=== PATIENT | female | born 1985 | race Caucasian/White ===

== ENCOUNTER 2018-05-05 07:59 | Emergency (ER) | payer MEDICARE, SELFPAY ==
[2018-05-05 08:00] VITALS: BP 98/55; PULSE 79; RESP 18; TEMP 37.2; O2SAT 98; BMI 25.4
--- NOTE | 2018-05-05 08:27 | ED.DCSUM_ITS ---
- ER Visit Summary Date of Service: 05/05/18 Chief Complaint: Right foot pain History of Present Illness: The patient is a 32 F who has right foot pain. She states it started 4 days ago. She noticed a wound on the top of the foot at the base of the fourth toe. She went to urgent care yesterday and the put her on Augmentin. Her pain is increased today. She has not had fever. No drainage. Hurts to walk on it. She has been using Tylenol to help with the pain. She states that she has a surgery scheduled for Friday for a mesh removal wanted to make sure that the antibiotics would not interfere with that. Physical Examination: Vital signs are reviewed. Right foot exam reveals a small wound at the base of the fourth toe with mild surrounding erythema. There is no abscess. It is tender to palpation. Test Results: None performed Emergency Department Course and Treatment: Patient will be given different antibiotics. I will switch her to Bactrim. I will also give her Bactroban to put on this area. She will follow-up with her PCP Treatment Plan: [] Disposition: Discharge Impression: Right foot cellulitis This note was generated with [employer] dictation software. It may contain incorrect words, spelling, and punctuation that were not noted in review of the chart prior to signing ED Disposition - Plan for ED Patient: Chief Complaint: Cellulitis Referrals: Aubrey Hernandez MD [Primary Care Provider] -
--- NOTE | 2018-05-05 08:27 | ED.DEP ---
ED Disposition - Plan for ED Patient: Disposition: Home or Assisted Living Chief Complaint: Cellulitis Instructions: Discharge Instructions for Cellulitis Prescriptions: Smz/Tmp Ds [Bactrim Ds] 1 tab PO BID #14 tab Mupirocin Calcium [Bactroban] 30 gm TP 4X/DAY #1 tube Referrals: Aubrey Hernandez MD [Primary Care Provider] -
== END 2018-05-05 08:44 | disposition home or self-care (01) ==
PROVIDERS: Emergency Provider Emergency Medicine; Family Provider Family Medicine; PCP Family Medicine
DX: L03.115 Cellulitis of right lower limb (principal); B96.89 Other specified bacterial agents as the cause of diseases classified elsewhere; M79.7 Fibromyalgia; Z72.0 Tobacco use
CPT/HCPCS: 99282

== ENCOUNTER 2018-05-06 21:58 | Emergency (ER) | payer MEDICARE, SELFPAY ==
[2018-05-06 21:59] VITALS: BP 116/57; PULSE 79; RESP 15; TEMP 36.6; O2SAT 98; BMI 25.4
--- NOTE | 2018-05-06 23:20 | ED.VISSUMM ---
- ER Visit Summary Date of Service: 05/06/18 Chief Complaint: Right fourth toe pain, swelling and purulent discharge History of Present Illness: The patient is a 32 F states last Eugenio she felt pain in her fourth right toe. The next day she noticed swelling. Initially she thought she may have had some type of insect sting and allergic reaction. However the swelling became worse with redness. She was treated in urgent care earlier this week and started on Augmentin twice daily. She then came in the ER and was switched to Bactrim and Bactroban cream. She states was elevated feels better when she is up and walking or when the foot is hanging down it feels worse. She denies any fever or chills. She does have a history of fibromyalgia and chronic pain. She denies any prior foot surgeries. Physical Examination: Well-appearing female vital signs are stable and afebrile. She is in no acute distress. H EENT exam unremarkable. Neck nontender. Lungs clear to auscultation bilaterally. Heart regular rhythm no murmur. Abdomen soft nontender. She is moving all 4 extremities. Neurovascularly intact. Top of her right foot the base of her fourth toe on the anterior aspect there is a small abscess. There is some small purulent discharge. Otherwise the foot is neurovascularly intact. With strong DP pulse. Cap refill normal touch sensation. No gross bony deformities. No lymphangitic streaking. No involvement of the ankle or any signs of septic joint. No crepitance or subcu air. No necrotic tissue. Test Results: None Emergency Department Course and Treatment: Discussed with the patient. I feel she needs a formal incision and drainage. Let will be applied to the wound. Then local anesthetic with lidocaine. Treatment Plan: Continue warm soaks. Continue elevation. Continue antibiotic therapy with both the Augmentin and Bactrim. Follow-up with her primary care physician Dr. Mattson. Return if worse. Disposition: Discharge Impression: Acute right foot pain and swelling secondary to subcu abscess at the base of the fourth toe. Incision and drainage by the ER This note was generated with [employer] dictation software. It may contain incorrect words, spelling, and punctuation that were not noted in review of the chart prior to signing ED Disposition - Plan for ED Patient: Chief Complaint: Wound Check Referrals: Aubrey Hernandez MD [Primary Care Provider] -
--- NOTE | 2018-05-06 23:23 | ED.DEP ---
ED Disposition - Plan for ED Patient: Disposition: Home or Assisted Living Chief Complaint: Wound Check Instructions: ED Abscess IandD Referrals: Aubrey Hernandez MD [Primary Care Provider] - 3-5 Days Additional Instructions: Continue to elevate the foot to decrease pain and swelling. Motrin and Tylenol for pain. Warm soaks to help the pus continue to drain out. I would encourage you to use both the Augmentin and Bactrim which should definitely cover any potential infections in this wound.
[2018-05-07] MEDS: Lidocaine/Epi/Tetracaine 50 ML 1 APPLIC TOPICAL (00:09)
== END 2018-05-07 00:25 | disposition home or self-care (01) ==
PROVIDERS: Emergency Provider Emergency Medicine; Family Provider Family Medicine; PCP Family Medicine
DX: L02.611 Cutaneous abscess of right foot (principal); B96.89 Other specified bacterial agents as the cause of diseases classified elsewhere; M79.7 Fibromyalgia; M19.90 Unspecified osteoarthritis, unspecified site; G89.29 Other chronic pain; Z79.891 Long term (current) use of opiate analgesic; Z79.899 Other long term (current) drug therapy; Z72.0 Tobacco use
CPT/HCPCS: 10060; 99284

== ENCOUNTER 2018-05-09 08:30 | Emergency (ER) | payer MEDICARE, SELFPAY ==
[2018-05-09 08:31] VITALS: BP 105/68; PULSE 72; RESP 24; TEMP 36.7; O2SAT 99; BMI 25.4
--- NOTE | 2018-05-09 08:46 | ED.VISSUMM ---
- ER Visit Summary Date of Service: 05/09/18 Chief Complaint: [] Anterior abdominal wall pain right flank pain status post removal of anterior abdominal wall mesh at [facility] yesterday by Dr. Arshad History of Present Illness: The patient is a 32 F [] she reports history of chronic low back pain fibromyalgia abdominal pain related to anterior abdominal wall mesh, she indicates she did abdominal hernia she had a mesh placed the mesh then she states curled up around her umbilicus, causing severe abdominal pain she had abdominal surgery yesterday to remove the mesh at [facility] as above she indicates she had pain before the surgery, she had immediate postop pain, she explains the physicians at [facility] she was having immediate postop pain she was given Canjilon and sent home despite the fact that her pain was still persistent, she indicates she continue to take the Canjilon at home with no improvement the pain intensified, the Canjilon was not helping she also began having low lumbar back pain she reports she called [facility] spoke with the physician director content marketing for her physician was instructed to come to the hospital Had no fever she has had a slight cough since the surgery the abdominal pain is related to the surgical incision and she points directly to her umbilicus she has chronic lumbar back pain she points to her right flank is area of pain she is resting comforting the bed when she moves she has more pain in her umbilicus Physical Examination: [] Vital signs are within normal range her pulse ox is 97 she is afebrile she is complaining bitterly of anterior abdominal wall pain her head exams unremarkable her lungs are clear the heart tones are normal the abdomen there is a midline incision in place that is centered around the umbilicus, seems to be some of the tissue has been pulled together here. There is no drainage or warmth or abscess or signs of fluid collection, there is a moderate amount of pain around this incision. The rest the abdominal wall is unremarkable, the rest the abdomen is unremarkable, her midline back is unremarkable which she has some pain to the right flank her lower extremities unremarkable she has a dressing over toe lesion to the right she is awake alert moving all 4 Test Results: [] Emergency Department Course and Treatment: [] This time screening labs are obtained IV fluids morphine and we will speak with the [facility] physicians who took care of her yesterday, I spoke with these physicians director content marketing they agree with workup they agree no imaging is necessary and they are happy to have her transfer to [facility] should the patient wish to be transferred to her pain be intractable Treatment Plan: [] The patient's test results x-rays are generally unremarkable see those reports on reevaluation she is resting comfortably in the bed she has no complaints she is feeling much better she has no cough she is able take a full breath move her body around the room without complaining of pain I explained to the patient we could arrange for admission as above to the back to the [facility] or she could be admitted here for further management she does not wish to be admitted she is feeling better she wants to go home and she does agree to continue her outpatient management plan follow-up with her physicians, she is concerned that she has not had a bowel movement yet but she is passing gas and she will be started on MiraLAX as constipation could certainly contribute to her constellation of symptoms, she will be switched to Percocet No. 10 tablets Disposition: [] Home stable and improved declined admission Impression: [] Abdominal pain, postop removal of abdominal wall mesh, improved This note was generated with [employer] dictation software. It may contain incorrect words, spelling, and punctuation that were not noted in review of the chart prior to signing ED Disposition - Plan for ED Patient: Chief Complaint: Abd Pain Referrals: Aubrey Hernandez MD [Primary Care Provider] -
--- NOTE | 2018-05-09 08:49 | ED.DCSUM_ITS ---
- ER Visit Summary Date of Service: 05/09/18 Chief Complaint: [] Anterior abdominal wall pain right flank pain status post removal of anterior abdominal wall mesh at [facility] yesterday by Dr. Arshad History of Present Illness: The patient is a 32 F [] she reports history of chronic low back pain fibromyalgia abdominal pain related to anterior abdominal wall mesh, she indicates she did abdominal hernia she had a mesh placed the mesh then she states curled up around her umbilicus, causing severe abdominal pain she had abdominal surgery yesterday to remove the mesh at [facility] as above she indicates she had pain before the surgery, she had immediate postop pain, she explains the physicians at [facility] she was having immediate postop pain she was given [place] and sent home despite the fact that her pain was still persistent, she indicates she continue to take the [place] at home with no improvement the pain intensified, the [place] was not helping she also began having low lumbar back pain she reports she called [facility] spoke with the physician release of information specialist for her physician was instructed to come to the hospital Had no fever she has had a slight cough since the surgery the abdominal pain is related to the surgical incision and she points directly to her umbilicus she has chronic lumbar back pain she points to her right flank is area of pain she is resting comforting the bed when she moves she has more pain in her umbilicus Physical Examination: [] Vital signs are within normal range her pulse ox is 97 she is afebrile she is complaining bitterly of anterior abdominal wall pain her head exams unremarkable her lungs are clear the heart tones are normal the abdomen there is a midline incision in place that is centered around the umbilicus, seems to be some of the tissue has been pulled together here. There is no drainage or warmth or abscess or signs of fluid collection, there is a moderate amount of pain around this incision. The rest the abdominal wall is unremarkable, the rest the abdomen is unremarkable, her midline back is unremarkable which she has some pain to the right flank her lower extremities unremarkable she has a dressing over toe lesion to the right she is awake alert moving all 4 Test Results: [] Emergency Department Course and Treatment: [] This time screening labs are obtained IV fluids morphine and we will speak with the [facility] physicians who took care of her yesterday, I spoke with these physicians release of information specialist they agree with workup they agree no imaging is necessary and they are happy to have her transfer to [facility] should the patient wish to be transferred to her pain be intractable Treatment Plan: [] The patient's test results x-rays are generally unremarkable see those reports on reevaluation she is resting comfortably in the bed she has no complaints she is feeling much better she has no cough she is able take a full breath move her body around the room without complaining of pain I explained to the patient we could arrange for admission as above to the back to the [facility] or she could be admitted here for further management she does not wish to be admitted she is feeling better she wants to go home and she does agree to continue her outpatient management plan follow-up with her physicians, she is concerned that she has not had a bowel movement yet but she is passing gas and she will be started on MiraLAX as constipation could certainly contribute to her constellation of symptoms, she will be switched to Percocet No. 10 tablets Disposition: [] Home stable and improved declined admission Impression: [] Abdominal pain, postop removal of abdominal wall mesh, improved This note was generated with [employer] dictation software. It may contain incorrect words, spelling, and punctuation that were not noted in review of the chart prior to signing ED Disposition - Plan for ED Patient: Chief Complaint: Abd Pain Referrals: Aubrey Hernandez MD [Primary Care Provider] -
[2018-05-09] MEDS: Ondansetron 4 MG/2 ML Vial IV (08:51)
[2018-05-09] MEDS: 0.9% Normal Saline 1,000 ML 1000 ML IV (08:51)
[2018-05-09] MEDS: morphine 8 MG/ML Syringe IV (08:53)
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
[2018-05-09 09:10] LABS: Absolute Lymphocyte Count 2.87 X10^3/ul (0.83-4.51); Absolute Neutrophil Count 5.4 X10^3/uL (2.0-7.7); Basophil# 0.02 X10^3/uL; Basophil% 0.2 % (0-1); Eosinophil# 0.13 X10^3/uL; Eosinophils% 1.4 % (0-5); Hematocrit 35.4 % (37-47); Hemoglobin 12.1 g/dl (12.0-15.0); Lymphocyte # 2.87 X10^3/ul (4.0); Lymphocyte % 31.9 % (19-41); Mean Corp Hgb Conc 34.2 g/gl (32-36); Mean Corpuscular Hgb 31.9 pg (27.0-32.0); Mean Corpuscular Volume 93.4 fL (81-99); Mean Platelet Vol. 10.5 fl (6.2-12.0); Monocyte# 0.61 X10^3/uL; Monocyte% 6.8 % (0-10); Neutrophil # 5.35 X10^3/uL (2.7-7.7); Neutrophil % 59.5 % (47-70); POSITIVE COUNT NO; POSITIVE DIFFERENTIAL NO; POSITIVE MORPHOLOGY NO; Platelet Count 222 K/mm3 (150-450); RBC Distribution Width CV 13.2 % (11.6-14.6); RBC Distribution Width SD 43.5 fl (35.1-43.9); Red Blood Count 3.79 M/mm3 (4.2-5.4)
[2018-05-09 09:23] LABS: Bacteria 0 SEEN /hpf (None Seen); Mucous, Urine 0 SEEN /hpf (<or=2+); Red Blood Cells-Urine 0 SEEN /hpf (0-5); White Blood Cells 0 SEEN /hpf (0-5)
[2018-05-09 09:27] LABS: Color, Urine Yellow (Yellow); Glucose, Dipstick Normal (Normal); Ketone-Dipstick Negative (Negative); Leukocyte Esterase-Dipstick Negative /ul (Negative); Nitrite-Dipstick Negative (Negative); Occult Blood-Urine Negative /ul (Negative); Protein-Dipstick Negative (Negative); Urine Bilirubin Dipstick Negative (Negative); Urine Clarity Clear (Clear); Urine Urobilinogen Normal (Normal); Urine pH 6.5 (5.0 - 8.0)
[2018-05-09 09:33] LABS: Squamous Epithelial Cells - UA 0-5 SEEN /hpf (5-10)
[2018-05-09 09:33] LABS: Anion Gap 5 (5-15); BUN 10 mg/dL (7-18); Calcium,Total 8.7 mg/dL (8.5-10.1); Chloride 106 mmol/L (98-107); Creatinine, Serum 0.91 mg/dL (0.55-1.02); EST Glomerular Filtration Rate 75 mL/min (>60); Est Glom Filt Rate - Afr Amer 91 mL/min (>60); Estimated Creatinine Clearance 66.35 ml/min; Glucose 94 mg/dL (74-106); Sodium Level 137 mmol/L (136-145)
--- NOTE | 2018-05-09 10:29 | ED.DEP ---
ED Disposition - Plan for ED Patient: Chief Complaint: Abd Pain Instructions: ED Abdominal Pain Unkn Cause Prescriptions: Oxycodone HCl/Acetaminophen [Percocet 5/325] 1 tab PO Q6H PRN PRN 3 Days #12 tab PRN Reason: Pain Referrals: Aubrey Hernandez MD [Primary Care Provider] -
[2018-05-09 10:38] VITALS: BP 106/57; PULSE 74; RESP 18; O2SAT 99
== END 2018-05-09 11:33 | disposition home or self-care (01) ==
PROVIDERS: Emergency Provider Emergency Medicine; Family Provider Family Medicine; PCP Family Medicine
DX: R10.9 Unspecified abdominal pain (principal); G89.18 Other acute postprocedural pain; M79.7 Fibromyalgia; Z79.899 Other long term (current) drug therapy
CPT/HCPCS: 71045; 80048; 81001; 85025; 96361; 96374; 96375; 99285; J7030; J2405

== ENCOUNTER 2018-05-10 14:01 | Emergency (ER) | payer MEDICARE, SELFPAY ==
[2018-05-10 14:07] VITALS: BP 103/67; PULSE 83; RESP 17; TEMP 36.9; O2SAT 99; BMI 25.4
--- NOTE | 2018-05-10 15:05 | CT_ITS ---
STUDY: CT ABDOMEN AND PELVIS WITH CONTRAST REASON FOR EXAM: Female, 32 years old. Abdominal pain, status post umbilical hernia mesh removal 2 days ago. RADIATION DOSAGE (If Supplied By Facility): CTDIvol = ( 13.17 ) mGy, DLP = ( 470.04 ) mGycm TECHNIQUE: Transaxial images were obtained from the dome of the diaphragm to the symphysis pubis with oral contrast. 100mL ml of Isovue 300 contrast was administered. Sagittal and coronal images were reconstructed. Individualized dose optimization techniques were used for this CT. COMPARISON: Previous study of 05/31/2016 FINDINGS: The visualized lung bases are unremarkable. The visualized portions of the heart are within normal limits. Normal liver. Normal gallbladder and extrahepatic biliary system. Normal spleen. Normal pancreas. There is a minimal pneumoperitoneum. Several tiny gas densities are noted surrounding the IVC, gallbladder, lateral to the right kidney, and anterior to the liver. Normal bilateral adrenal glands. There is a nonobstructing 2 mm calculus of the right kidney. There is a nonobstructing 5 mm calculus of the left kidney. Normal visualized stomach. Normal small intestine. There is a large amount of colonic stool and gas. There is non-visualization of the appendix. Normal abdominal aorta. Normal inferior vena cava. Normal retroperitoneum. Normal urinary bladder. Air is demonstrated in the upper vagina. There is a low-attenuation cervical focus measuring 3.7 x 2.2 cm which is of unknown significance. Post surgical changes of the umbilical region are noted. Several small air densities are present in the region. There is a fluid density subcutaneous focus measuring 2.8 x 1.8 cm. Normal osseous structures. CT/Abdomen/Pelvis WITH Contrast IMPRESSION: 1. There is a minimal pneumoperitoneum. Gas densities are noted surrounding the IVC, gallbladder, lateral to the right kidney, and anterior to the liver. 2. Nonobstructing 2 mm calculus of the right kidney. 3. Nonobstructing 5 mm calculus of the left kidney. 4. There is a large amount of colonic stool and gas. 5. Air is demonstrated in the upper vagina. There is a low-attenuation cervical focus measuring 3.7 x 2.2 cm which is of unknown significance. This is new from the previous study. Endovaginal ultrasonography is recommended for further evaluation of this finding. 6. Postsurgical changes of the umbilical region. There are several small air densities in the subcutaneous fat in the region. This is consistent with history of recent surgery. There is also noted a small subcutaneous fluid collection at the surgical site measuring 2.8 x 1.8 cm. Differential diagnosis would include seroma and abscess. Electronically Signed: Jem Guillermo MD at 18:51 EDT , Service support ,
--- NOTE | 2018-05-10 15:08 | ED.DCSUM_ITS ---
- ER Visit Summary Date of Service: 05/10/18 Chief Complaint: Postop pain History of Present Illness: The patient is a 32 F who underwent abdominal mesh removal on May 08 at [facility] [place]. Patient was seen in the ER yesterday for abdominal pain. Labs were unremarkable. She states her pain is not controlled with Percocet at home. She has not had fever or chills. Physical Examination: Vital signs unremarkable. Patient is afebrile. Head neck examination is unremarkable. Heart is regular rate and rhythm. Lung sounds are clear. Abdomen is soft with periumbilical tenderness. Surgical site is clean. Hypoactive bowel sounds are noted throughout. Test Results: CBC and chemistry studies are unremarkable. CT the abdomen pelvis with p.o. and IV contrast is obtained. There is minimal pneumoperitoneum. Renal stones noted. There is a large amount of colonic stool and gas. There is air in the upper vagina. There is a small subcutaneous fluid collection at the surgical site measuring 2.8 x 1.8 cm. This could be seroma versus abscess. Emergency Department Course and Treatment: Patient did receive a couple doses of morphine and Zofran here. Pain will be well controlled after a shot but then would worsen when she would get up to go to the bathroom. Patient did start taking MiraLAX yesterday and I recommended taking it 2 or 3 times a day while she is on narcotics. I will write her correct dosing instructions for her narcotics that she really has at home. Patient does not have a white count or fever and I believe the fluid collection noted at the surgical site is most likely a seroma. Treatment Plan: [] Disposition: Discharge Impression: Postop abdominal pain This note was generated with [employer] dictation software. It may contain incorrect words, spelling, and punctuation that were not noted in review of the chart prior to signing ED Disposition - Plan for ED Patient: Chief Complaint: Abd Pain Referrals: Aubrey Hernandez MD [Primary Care Provider] -
[2018-05-10] MEDS: Morphine 4 MG/ML Syringe IV ×3 (15:38→19:38)
[2018-05-10] MEDS: 0.9% Normal Saline 1,000 ML 150 ML IV (15:38)
[2018-05-10] MEDS: Ondansetron 4 MG/2 ML Vial IV ×3 (15:38→19:39)
[2018-05-10 15:43] LABS: Absolute Lymphocyte Count 1.56 X10^3/ul (0.83-4.51); Absolute Neutrophil Count 3.5 X10^3/uL (2.0-7.7); Basophil# 0.02 X10^3/uL; Basophil% 0.3 % (0-1); Eosinophil# 0.13 X10^3/uL; Eosinophils% 2.3 % (0-5); Hematocrit 36.7 % (37-47); Hemoglobin 12.3 g/dl (12.0-15.0); Lymphocyte # 1.56 X10^3/ul (4.0); Lymphocyte % 27.3 % (19-41); Mean Corp Hgb Conc 33.5 g/gl (32-36); Mean Corpuscular Hgb 31.1 pg (27.0-32.0); Mean Corpuscular Volume 92.9 fL (81-99); Mean Platelet Vol. 10.1 fl (6.2-12.0); Monocyte# 0.49 X10^3/uL; Monocyte% 8.6 % (0-10); Neutrophil # 3.51 X10^3/uL (2.7-7.7); Neutrophil % 61.3 % (47-70); Platelet Count 214 K/mm3 (150-450); RBC Distribution Width CV 13.5 % (11.6-14.6); RBC Distribution Width SD 46.1 fl (35.1-43.9); Red Blood Count 3.95 M/mm3 (4.2-5.4); White Blood Count 5.7 K/mm3 (4.4-11.0)
[2018-05-10 15:45] LABS: POSITIVE COUNT NO; POSITIVE DIFFERENTIAL NO; POSITIVE MORPHOLOGY NO
[2018-05-10 15:59] LABS: Anion Gap 7 (5-15); BUN 6 mg/dL (7-18); Calcium,Total 8.9 mg/dL (8.5-10.1); Chloride 106 mmol/L (98-107); Creatinine, Serum 0.67 mg/dL (0.55-1.02); EST Glomerular Filtration Rate 107 mL/min (>60); Est Glom Filt Rate - Afr Amer 130 mL/min (>60); Estimated Creatinine Clearance 90.12 ml/min; Glucose 89 mg/dL (74-106); Potassium 4.3 mmol/L (3.5-5.1); Sodium Level 136 mmol/L (136-145)
[2018-05-10 18:31] VITALS: BP 105/71; PULSE 78; RESP 20; O2SAT 98
--- NOTE | 2018-05-10 19:23 | ED.DEP ---
ED Disposition - Plan for ED Patient: Disposition: Home or Assisted Living Chief Complaint: Abd Pain Instructions: ED Post Op Pain Referrals: Aubrey Hernandez MD [Primary Care Provider] - Additional Instructions: You have [place] and Percocet at home. Dosing for this medication is 1-2 tabs every 4-6 hours as needed for pain. This medication is likely to make you more constipated. Be sure to take the MiraLax as discussed.
[2018-05-10 19:36] VITALS: BP 121/79; PULSE 72; RESP 16; O2SAT 96
== END 2018-05-10 20:00 | disposition home or self-care (01) ==
PROVIDERS: Emergency Provider Emergency Medicine; Family Provider Family Medicine; PCP Family Medicine
DX: R10.33 Periumbilical pain (principal); G89.18 Other acute postprocedural pain; J45.909 Unspecified asthma, uncomplicated; F12.90 Cannabis use, unspecified, uncomplicated; Z79.899 Other long term (current) drug therapy; Z72.0 Tobacco use
CPT/HCPCS: 74177; 80048; 85025; 96361; 96374; 96375; 96376; 99285; J7030; Q9967; A4216; J2405

== ENCOUNTER 2019-09-05 13:35 | Emergency (ER) | payer MEDICARE, SELFPAY ==
[2019-09-05 13:36] VITALS: BP 119/65; PULSE 89; RESP 15; TEMP 36.9; O2SAT 99; BMI 25.8
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
[2019-09-05 13:52] VITALS: RESP 16
[2019-09-05 14:03] LABS: Absolute Lymphocyte Count 3.55 X10^3/uL (0.83-4.51); Absolute Neutrophil Count 7.6 X10^3/uL (2.0-7.7); Basophil# 0.04 X10^3/uL; Basophil% 0.3 % (0-1); Eosinophil# 0.08 X10^3/uL; Eosinophils% 0.7 % (0-5); Hematocrit 41.8 % (37-47); Hemoglobin 14.3 g/dL (12.0-15.0); Lymphocyte # 3.55 X10^3/ul (4.0); Lymphocyte % 28.9 % (19-41); Mean Corp Hgb Conc 34.2 g/dL (32-36); Mean Corpuscular Hgb 31.4 pg (27.0-32.0); Mean Corpuscular Volume 91.9 fL (81-99); Mean Platelet Vol. 9.7 fl (6.2-12.0); Monocyte# 0.93 X10^3/uL; Monocyte% 7.6 % (0-10); NRBC Flagged by Analyzer 0 % (0-5); Neutrophil # 7.63 X10^3/uL (2.7-7.7); Neutrophil % 62.2 % (47-70); Platelet Count 261 K/mm3 (150-450); RBC Distribution Width CV 13.1 % (11.6-14.6); RBC Distribution Width SD 44.2 fl (35.1-43.9); Red Blood Count 4.55 M/mm3 (4.2-5.4); White Blood Count 12.3 K/mm3 (4.4-11.0)
[2019-09-05 14:14] LABS: International Normalized Ratio 1.1; Partial Thromboplast Time 25.6 Seconds (24.1-36.2); Prothrombin Time (Protime)PT. 13.6 SECONDS (11.7-14.9)
[2019-09-05 14:58] VITALS: RESP 16
== END 2019-09-05 14:59 | disposition home or self-care (01) ==
PROVIDERS: Emergency Provider Emergency Medicine; Family Provider Family Medicine; PCP Family Medicine
DX: S93.402A Sprain of unspecified ligament of left ankle, initial encounter (principal); S43.401A Unspecified sprain of right shoulder joint, initial encounter; S40.022A Contusion of left upper arm, initial encounter; S40.021A Contusion of right upper arm, initial encounter; S80.02XA Contusion of left knee, initial encounter; S80.01XA Contusion of right knee, initial encounter; S90.02XA Contusion of left ankle, initial encounter; S90.01XA Contusion of right ankle, initial encounter; X58.XXXA Exposure to other specified factors, initial encounter; Y93.89 Activity, other specified; Y92.149 Unspecified place in prison as the place of occurrence of the external cause; J45.909 Unspecified asthma, uncomplicated; F12.90 Cannabis use, unspecified, uncomplicated; F17.200 Nicotine dependence, unspecified, uncomplicated
CPT/HCPCS: 73030; 73610; 85025; 85610; 85730; 99283

== ENCOUNTER → 2020-12-11 06:36 | Outpatient (CLI) | payer MEDICARE, MEDICAID, SELFPAY ==
[2020-06-29 11:19] VITALS: BMI 25.3
--- NOTE | 2020-12-11 08:05 | TELEMED_ITS ---
[facility] has confirmed receipt of a request for visit. This document confirms receipt of the order initiating the consult. To find the results of the consultation, please view the patient's reports for the scanned Telemed Consult.
== END ==
PROVIDERS: PCP Family Medicine; Referring Provider Registered Nurse; Visit Provider Registered Nurse
DX: R55 Syncope and collapse (principal)
CPT/HCPCS: 95819

== ENCOUNTER 2021-07-09 11:06 | Emergency (ER) | payer MEDICARE, MEDICAID, SELFPAY ==
[2021-07-09 11:07] VITALS: BP 107/78; PULSE 95; RESP 16; TEMP 37.5; O2SAT 97; BMI 26.4
--- NOTE | 2021-07-09 12:24 | US_ITS ---
EXAM: US ABDOMEN LIMITED, RIGHT UPPER QUADRANT CLINICAL INDICATION: PAIN TECHNIQUE: Real-time ultrasound of the right upper quadrant with image documentation. This report was created using E[employer] report generation technology. COMPARISON: None. FINDINGS: LIVER: Unremarkable. There is normal echotexture. No focal hepatic lesion. No intrahepatic biliary ductal dilation. GALLBLADDER: Unremarkable. No shadowing gallstone. No gallbladder wall thickening is demonstrated. No pericholecystic fluid. Negative sonographic Churchill''s sign. COMMON BILE DUCT: Unremarkable as visualized. The proximal common bile duct is within normal limits for the patient''s age. PANCREAS: Mild increased echogenicity of the visualized pancreas suggests fatty replacement. No focal abnormality is demonstrated in the pancreas. No pancreatic ductal dilatation. RIGHT KIDNEY: Unremarkable. There is no hydronephrosis. No shadowing calculus. No focal lesion or perinephric collection is demonstrated. US/Gallbladder IMPRESSION: No gallstones or biliary obstruction. Electronically Signed: Alec Eckert MD ([place]) at 13:22 EDT , Service support ,
[2021-07-09] MEDS: Ondansetron 4 MG/2 ML Vial IV (12:35)
[2021-07-09] MEDS: 0.9% Normal Saline 1,000 ML 1000 ML IV (12:35)
[2021-07-09] MEDS: Morphine 4 MG/ML Syringe IV (12:36)
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
[2021-07-09 12:48] LABS: Mucous, Urine 0 SEEN /hpf (<or=2+); Squamous Epithelial Cells - UA 0 SEEN /hpf (5-10); White Blood Cells 0 SEEN /hpf (0-5)
[2021-07-09 12:52] LABS: Absolute Lymphocyte Count 1.91 X10^3/uL (0.83-4.51); Absolute Neutrophil Count 8.6 X10^3/uL (2.0-7.7); Basophil# 0.04 X10^3/uL; Basophil% 0.4 % (0-1); Eosinophil# 0.06 X10^3/uL; Eosinophils% 0.5 % (0-5); Hematocrit 44.1 % (37-47); Hemoglobin 14.8 g/dL (12.0-15.0); Lymphocyte # 1.91 X10^3/ul (0.83-4.51); Lymphocyte % 17.2 % (19-41); Mean Corp Hgb Conc 33.6 g/dL (32-36); Mean Corpuscular Hgb 31.8 pg (27.0-32.0); Mean Corpuscular Volume 94.6 fL (81-99); Mean Platelet Vol. 10.1 fl (6.2-12.0); Monocyte# 0.42 X10^3/uL; Monocyte% 3.8 % (0-10); NRBC Flagged by Analyzer 0 % (0-5); Neutrophil # 8.63 X10^3/uL (2.7-7.7); Neutrophil % 77.7 % (47-70); Platelet Count 277 K/mm3 (150-450); RBC Distribution Width CV 13.2 % (11.6-14.6); RBC Distribution Width SD 45.3 fl (35.1-43.9); Red Blood Count 4.66 M/mm3 (4.2-5.4); White Blood Count 11.1 K/mm3 (4.4-11.0)
[2021-07-09 12:53] LABS: Internal QC Validated? YES +Cl - CLEAR BKGD; Pregnancy, Serum, hCG Quali. NEGATIVE Negative
[2021-07-09 12:58] LABS: Color, Urine Yellow (Yellow); Glucose, Dipstick Normal (Normal); Ketone-Dipstick Negative (Negative); Leukocyte Esterase-Dipstick Negative /ul (Negative); Nitrite-Dipstick Negative (Negative); Occult Blood-Urine 10 /ul (Negative); Protein-Dipstick Negative (Negative); Urine Bilirubin Dipstick Negative (Negative); Urine Clarity Cloudy (Clear); Urine Urobilinogen Normal (Normal)
[2021-07-09 13:02] LABS: AST(SGOT) 14 U/L (15-37); Alanine Aminotransfer ALT/SGPT 12 U/L (13-56); Albumin, Serum 4.1 g/dL (3.2-5.0); Alkaline Phosphatase 56 U/L (45-117); Anion Gap 7 (5-15); BUN 10 mg/dL (7-18); BUN/Creat Ratio 12.4 RATIO (10-20); Chloride 109 mmol/L (98-107); Creatinine, Serum 0.81 mg/dL (0.55-1.02); EST Glomerular Filtration Rate 85 mL/min (>60); Est Glom Filt Rate - Afr Amer 103 mL/min (>60); Estimated Creatinine Clearance 72.45 ml/min; Globulin 4.1 g/dL (2.2-4.2); Glucose 104 mg/dL (74-106); Lipase 91 U/L (73-393); Potassium 3.9 mmol/L (3.5-5.1); Protein, Total 8.2 g/dL (6.4-8.2); Sodium Level 140 mmol/L (136-145)
[2021-07-09 13:04] LABS: Amorphous Sediment 2+; Bacteria 1+ /hpf (None Seen); Red Blood Cells-Urine 0-5 SEEN /hpf (0-5)
[2021-07-09 13:42] VITALS: BP 110/70; PULSE 69; RESP 16; O2SAT 99
== END 2021-07-09 14:29 | disposition home or self-care (01) ==
PROVIDERS: Emergency Provider Emergency Medicine; PCP Family Medicine
DX: R10.11 Right upper quadrant pain (principal); F17.210 Nicotine dependence, cigarettes, uncomplicated; F12.10 Cannabis abuse, uncomplicated
CPT/HCPCS: 76705; 80053; 81001; 83690; 84703; 85025; 96374; 96375; 99283; J7030; A4216; J2405

== ENCOUNTER 2022-04-03 22:45 | Emergency (ER) | payer MEDICARE, MEDICAID, SELFPAY ==
[2022-04-03 22:45] VITALS: BP 123/79; PULSE 78; RESP 16; TEMP 36.8; O2SAT 97; BMI 28.3
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
[2022-04-04 00:20] VITALS: BP 123/79; PULSE 78; RESP 16; O2SAT 97
== END 2022-04-04 00:30 | disposition home or self-care (01) ==
PROVIDERS: Emergency Provider Emergency Medicine; PCP Family Medicine; Visit Provider Emergency Medicine
DX: S30.1XXA Contusion of abdominal wall, initial encounter (principal); V19.9XXA Pedal cyclist (driver) (passenger) injured in unspecified traffic accident, initial encounter; Y93.55 Activity, bike riding; Y99.8 Other external cause status; W22.09XA Striking against other stationary object, initial encounter; F17.210 Nicotine dependence, cigarettes, uncomplicated
CPT/HCPCS: 74176; 99282

== ENCOUNTER 2022-05-07 14:36 | Emergency (ER) | payer MEDICARE, MEDICAID, SELFPAY ==
[2022-05-07 14:38] VITALS: BP 101/71; PULSE 89; RESP 16; TEMP 36.8; O2SAT 96; BMI 30.2
--- NOTE | 2022-05-07 15:07 | CT_ITS ---
INDICATION: trauma, headache EXAMINATION: CT BRAIN - CT Head or Brain W/O Contrast Injection TECHNIQUE: Multiple axial images were obtained of the head without intravenous contrast. A radiation dose optimization technique was used for this scan. IV Contrast dosage and agent: None. COMPARISON: None. FINDINGS: BRAIN PARENCHYMA: No intra- or extra-axial hemorrhage. No evidence of acute infarct. No intracranial mass or mass effect. There is preservation of the carvalho/white matter interface. Posterior fossa structures are unremarkable. CSF SPACES: Appropriate for age. No hydrocephalus. Basal cisterns are patent. CALVARIUM, SKULL BASE, PARANASAL SINUSES AND MASTOID AIR CELLS: Subtle small mucous retention cyst visualized along the anterolateral aspect of the left maxillary sinus, otherwise unremarkable aeration of the paranasal sinuses. Unremarkable aeration of the mastoid air cells. No discrete lytic or blastic abnormalities. ORBITS: Both globes, extraocular muscles, optic nerves and retrobulbar fat appear unremarkable. ASPECTS Score for Acute Strokes: 10 CT/Brain/Head without Contrast IMPRESSION: No evidence of acute intracranial pathology is seen. Electronically Signed: Demario Gomez MD at 15:53 EDT Reading Location ID and State: [facility] / [place] Tel , Service support ,
--- NOTE | 2022-05-07 15:23 | RAD_ITS ---
INDICATION: INJURY -- INJURY EXAMINATION/TECHNIQUE: X-RAY - RIGHT XR Wrist Min 3 Views 3 VIEWS COMPARISON: None. FINDINGS: SOFT TISSUES: Soft tissue prominence is visualized, no abnormal density in the soft tissues. No radiopaque foreign body. BONES/JOINTS: No acute fracture or subluxation.. Normal alignment. Preservation of the joint space.. No sclerotic or destructive changes observed. RAD/Wrist min 3 Views IMPRESSION: No evidence of acute osseous abnormality.. Electronically Signed: Demario Gomez MD at 15:54 EDT ,
--- NOTE | 2022-05-07 15:30 | RAD_ITS ---
INDICATION: injury -- INJURY EXAMINATION/TECHNIQUE: X-RAY - LEFT XR Wrist Min 3 Views 3 VIEWS COMPARISON: None. FINDINGS: SOFT TISSUES: Soft tissue swelling visualized most prominent along the medial aspect of the wrist joint overlying the ulnar styloid process, no abnormal density in the soft tissues. No radiopaque foreign body. BONES/JOINTS: No acute fracture or subluxation.. Normal alignment. Preservation of the joint space.. No sclerotic or destructive changes observed. RAD/Wrist min 3 Views IMPRESSION: No evidence of acute osseous abnormality. Electronically Signed: Demario Gomez MD at 15:55 EDT ,
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
[2022-05-07] MEDS: Ketorolac 60 MG/2 ML Vial IM (16:59)
[2022-05-07] MEDS: Metoclopramide 10 MG/2 ML Vial 5 MG IM (16:59)
[2022-05-07 17:21] VITALS: BP 109/69; PULSE 78; RESP 15; O2SAT 98
== END 2022-05-07 17:22 | disposition home or self-care (01) ==
PROVIDERS: Emergency Provider Emergency Medicine; PCP Family Medicine; Visit Provider Emergency Medicine
DX: S00.83XA Contusion of other part of head, initial encounter (principal); S63.502A Unspecified sprain of left wrist, initial encounter; S60.211A Contusion of right wrist, initial encounter; X58.XXXA Exposure to other specified factors, initial encounter; G43.909 Migraine, unspecified, not intractable, without status migrainosus; G62.9 Polyneuropathy, unspecified; M79.7 Fibromyalgia; F17.210 Nicotine dependence, cigarettes, uncomplicated
CPT/HCPCS: 70450; 73110; 96372; 99283

== ENCOUNTER 2022-12-17 08:53 | Emergency (ER) | payer MEDICARE, MEDICAID, SELFPAY ==
[2022-12-17 08:54] VITALS: BP 115/77; RESP 18; TEMP 36.6; O2SAT 100; BMI 30.3
[2022-12-17 09:05] VITALS: BP 115/77; PULSE 89; RESP 18; TEMP 36.6; O2SAT 100
[2022-12-17] MEDS: Morphine 4 MG/ML Syringe IV (09:18)
[2022-12-17] MEDS: Ondansetron 4 MG/2 ML Vial IV (09:18)
--- NOTE | 2022-12-17 09:18 | ED.VIS.GI ---
HPI HPI - GI History of Present Illness Chief Complaint: Flank Pain Narrative Narrative: 37-year-old female presenting with right flank pain. She states its been here for a couple of months. It slowly progressively gotten worse. She states she has not had a known fever but does get chills and sweats. She states she gets colonic polyps which caused her to have diarrhea and vomiting all the time and has been no change. No black or bloody stools. Patient was seen by her gynecology a few days ago and she states she did check her urinalysis and started on Macrobid but ultimately her culture came back negative. She states none of her other blood work is come back. She called her juvenile justice officer again today due to worsening flank pain and was referred to her primary care provider who requested that she go to the emergency room. Patient does not have any history of kidney stones. She does not have any urinary or vaginal complaints today. PFSH PFSH Medical History Colon polyps Fibromyalgia Smoker Home Medications albuterol sulfate 90 mcg/actuation aerosol inhaler 1 - 2 puff inhalation Q4H PRN PRN Wheezing 08/20/21 [History Last Taken Unknown] Allergy/AdvReac Type Severity Reaction Status Date / Time tree and shrub pollen Allergy Unknown Verified 12/17/22 08:53 cyclobenzaprine AdvReac Other Verified 12/17/22 08:53 [From Flexeril] Surgical History H/O section History of herniorrhaphy Social History Smoking Status: Current every day smoker tobacco type: cigarettes alcohol intake: current alcohol intake frequency: 3 or more drinks per day substance use type: marijuana ROS ROS ED Constitutional Constitutional ED: Denies chills or fever(s) ENT ENT ED: Denies rhinorrhea or sore throat Cardiovascular Cardiovascular: Denies chest pain or palpitations Respiratory/Chest Respiratory/Chest: Denies cough or dyspnea Gastrointestinal Gastrointestinal: Reports abdominal pain, diarrhea, nausea and vomiting Genitourinary Genitourinary ED: Denies dysuria or hematuria Musculoskeletal Musculoskeletal: Reports back pain; Denies arthralgias Integumentary Denies abscess Neurologic Neurologic: Denies headache(s) or paresthesias Psychiatric Psychiatric: Denies anxiety or depression EXAM Physical Exam Const Vital Signs: 12/17/22 08:54 12/17/22 09:05 12/17/22 11:00 Temperature 97.8 F 97.8 F Temperature Source Temporal Temporal Pulse Rate 89 Respiratory Rate 18 18 Blood Pressure 115/77 115/77 108/68 Blood Pressure Mean 89 89 81 Pulse Ox 100 100 Oxygen Delivery Method Room Air Room Air 12/17/22 12:45 Temperature Temperature Source Pulse Rate Respiratory Rate Blood Pressure 114/75 Blood Pressure Mean Pulse Ox Oxygen Delivery Method Positive well nourished General Appearance ED: NAD HEENT Reports moist mucous membranes normocephalic Resp normal respiratory effort Effort and Inspection: Negative for respiratory distress Cardio regular rate and regular rhythm GI Palpation: tender RLQ Back/Spine General Back: CVA tenderness right Neuro CN's II-XII intact bilaterally and moves all extremities Sensorium / Orientation: alert Psych mental status grossly normal MDM MDM MDM Narrative Medical decision making narrative: 37-year-old female presenting with right flank pain which she reports has been present for about 2 months. It is worsening and she now states that it is radiating around the anterior aspect of her right lower abdomen. She has chronic nausea and vomiting as well as diarrhea which is unchanged. There is no history of kidney stones. Her CVA tenderness is low on the right flank. Differential includes but is not limited to pyelonephritis, renal calculi, ureteral calculi, acute appendicitis, diverticulitis, and given her history of herniography as well as small bowel obstruction is in the differential. Given that she has some right upper quadrant tenderness I also did consider acute cholelithiasis versus acute cholecystitis. Patient was with 4 mg morphine, 4 mg of Zofran. He was given 1 L normal saline. Discussed differential with the patient and will obtain a urinalysis to look for occult blood and urinary tract infection. CBC to assess white blood cell count, differential, hemoglobin. CMP to assess liver function, renal function, electrolytes, glucose, anion gap. I also did obtain a lipase because she does have some right upper quadrant pain although the predominance is the right flank lower in the right Lower abdomen. CBC shows no leukocytosis. Hemoglobin stable at 15.3, platelets 260. Liver function and renal function are normal. Electrolytes within normal limits. Glucose slightly elevated 109. No anion gap. Urinalysis negative for infection. Patient was initially given a dose of morphine and still had pain she was given a second dose. Obtained a CT of the abdomen pelvis with IV contrast which does show a large complex right ovarian cyst measuring 5.14 x 3.54 x 4.2. Given her continued pain I did order pelvic ultrasound to rule out torsion. The pelvic ultrasound does show good blood flow to both ovaries. There is a complex cyst that needs follow-up in the next 3 to 4 weeks. I spoke with Dr. Lord who will see her in follow-up. Dr. Lord did expressly want me to speak to her about pain control. She stated that she has a history of opioid addiction. She did not want her to be in pain but did want to be careful about giving her narcotics. I spoke with the patient regarding this and she does not want any opioids for home. I did speak to her about increasing pain or doubling over with concern for intermittent torsion and she knows to return if this happens. Patient states she will take NSAIDs [id number] at this time. Impression: 1. Abdominal pain 2. Right ovarian cyst Lab Data Labs: Laboratory Results - last 24 hr 12/17/22 12/17/22 12/17/22 09:08 09:08 09:20 WBC 8.0 RBC 4.61 Hgb 15.3 H Hct 44.3 MCV 96.1 MCH 33.2 H MCHC 34.5 RDW Std Deviation 45.1 H RDW Coeff of Damián 12.7 Plt Count 260 MPV 9.9 Immature Gran % (Auto) 0.500 Neut % (Auto) 57.4 Lymph % (Auto) 31.1 Rogers % (Auto) 5.6 Eos % (Auto) 4.9 Baso % (Auto) 0.5 Absolute Neuts (auto) 4.6 Absolute Lymphs (auto) 2.48 Nucleated RBC % 0 Sodium 140 Potassium 3.7 Chloride 109 H Carbon Dioxide 23.0 Anion Gap 8 BUN 12 Creatinine 0.84 Estim Creat Clear Calc 68.52 Est GFR (MDRD) Af Amer 98 Est GFR (MDRD) Non-Af 81 BUN/Creatinine Ratio 14.3 Glucose 109 H Calcium 8.7 Total Bilirubin 0.40 AST 10 L ALT 11 L Alkaline Phosphatase 55 Total Protein 7.6 Albumin 3.9 Globulin 3.7 Albumin/Globulin Ratio 1.1 Lipase 249 Urine Color Yellow Urine Clarity Sl. Cloudy Urine pH 6.5 Ur Specific [place] 1.015 Urine Protein Negative Urine Glucose (UA) Normal Urine Ketones Negative Urine Occult Blood Negative Urine Nitrite Negative Urine Bilirubin Negative Urine Urobilinogen Normal Ur Leukocyte Esterase Negative Urine RBC 0 SEEN Urine WBC 0 SEEN Ur Squamous Epith Cells 5-10 SEEN Urine Bacteria 1+ Urine Mucus 0 SEEN Radiography Diagnostic Testing: Clinical Impression(s) from Imaging Studies Abdomen/Pelvis CT 12/17/22 09:48 IMPRESSION: No obstructive uropathy, or suspicious solid renal lesion, there is a punctate nonobstructing right renal stone. Large complex right ovarian cyst measuring 5.14 x 3.54 x 4.23 cm which likely represents the patient''s discomfort. This could be further evaluated with ultrasound Nondistended fluid-filled small and large bowel loops consistent with diffuse enteritis. Normal appendix visualized Electronically Signed: Cameron Montejo MD at 10:34 EDT , Transvaginal US 12/17/22 10:38 IMPRESSION: There is a complex right ovarian cyst measuring 3.2 x 3.5 x 3.8 cm. Since it is not a simple cyst, short-term 3-4 week follow-up ultrasound is recommended to assess resolution or stability. Sonographically normal uterus and left ovary Electronically Signed: Cameron Montejo MD at 11:20 EDT , ADDENDUM: 12/17/22 1144 IMPRESSION: undefined ADDENDUM: 12/17/22 1247 IMPRESSION: undefined Discharge Plan Triage Chief Complaint: Flank Pain ED Provider: Domenic Yarbrough Dx/Rx/DC Orders Instructions: ED Ovarian Cyst Prescriptions: No Action albuterol sulfate 90 mcg/actuation HFA aerosol inhaler 1 - 2 puff inhalation Q4H PRN PRN (Reason: Wheezing) Primary Care Provider: Aubrey Hernandez Referrals: Mackenzie Lindsay CNM [Med Staff - Adv Practice Prof] - As soon as possible Aubrey Hernandez MD [Primary Care Provider] - Disposition Disposition: Home, Self Care Discharge Date/Time: 12/17/22 12:46
[2022-12-17] MEDS: 0.9% Normal Saline 1,000 ML 1000 ML IV (09:19)
[2022-12-17 09:20] LABS: Absolute Lymphocyte Count 2.48 X10^3/uL (0.83-4.51); Absolute Neutrophil Count 4.6 X10^3/uL (2.0-7.7); Basophil# 0.04 X10^3/uL; Basophil% 0.5 % (0-1); Eosinophil# 0.39 X10^3/uL; Eosinophils% 4.9 % (0-5); Hematocrit 44.3 % (37-47); Hemoglobin 15.3 g/dL (12.0-15.0); Lymphocyte # 2.48 X10^3/ul (0.83-4.51); Lymphocyte % 31.1 % (19-41); Mean Corp Hgb Conc 34.5 g/dL (32-36); Mean Corpuscular Hgb 33.2 pg (27.0-32.0); Mean Corpuscular Volume 96.1 fL (81-99); Mean Platelet Vol. 9.9 fl (6.2-12.0); Monocyte# 0.45 X10^3/uL; Monocyte% 5.6 % (0-10); NRBC Flagged by Analyzer 0 % (0-5); Neutrophil # 4.58 X10^3/uL (2.7-7.7); Neutrophil % 57.4 % (47-70); Platelet Count 260 K/mm3 (150-450); RBC Distribution Width CV 12.7 % (11.6-14.6); RBC Distribution Width SD 45.1 fl (35.1-43.9); Red Blood Count 4.61 M/mm3 (4.2-5.4)
[2022-12-17 09:30] LABS: Color, Urine Yellow (Yellow); Glucose, Dipstick Normal (Normal); Ketone-Dipstick Negative (Negative); Leukocyte Esterase-Dipstick Negative /ul (Negative); Mucous, Urine 0 SEEN /hpf (<or=2+); Nitrite-Dipstick Negative (Negative); Occult Blood-Urine Negative /ul (Negative); Protein-Dipstick Negative (Negative); Red Blood Cells-Urine 0 SEEN /hpf (0-5); Specific Gravity, Urine 1.015 (1.002-1.030); Urine Bilirubin Dipstick Negative (Negative); Urine Clarity Sl. Cloudy (Clear); Urine Urobilinogen Normal (Normal); Urine pH 6.5 (5.0 - 8.0); White Blood Cells 0 SEEN /hpf (0-5)
[2022-12-17 09:37] LABS: Bacteria 1+ /hpf (None Seen); Squamous Epithelial Cells - UA 5-10 SEEN /hpf (5-10)
[2022-12-17 09:41] LABS: ALB/GLOB Ratio 1.1 RATIO (0.9-2.4); AST(SGOT) 10 U/L (15-37); Alanine Aminotransfer ALT/SGPT 11 U/L (13-56); Albumin, Serum 3.9 g/dL (3.2-5.0); Alkaline Phosphatase 55 U/L (45-117); Anion Gap 8 (5-15); BUN 12 mg/dL (7-18); BUN/Creat Ratio 14.3 RATIO (10-20); Calcium,Total 8.7 mg/dL (8.5-10.1); Chloride 109 mmol/L (98-107); Creatinine, Serum 0.84 mg/dL (0.55-1.02); EST Glomerular Filtration Rate 81 mL/min (>60); Est Glom Filt Rate - Afr Amer 98 mL/min (>60); Estimated Creatinine Clearance 68.52 ml/min; Globulin 3.7 g/dL (2.2-4.2); Glucose 109 mg/dL (74-106); Lipase 249 U/L (73-393); Potassium 3.7 mmol/L (3.5-5.1); Protein, Total 7.6 g/dL (6.4-8.2); Sodium Level 140 mmol/L (136-145)
--- NOTE | 2022-12-17 09:48 | CT_ITS ---
STUDY: CT ABDOMEN AND PELVIS WITH CONTRAST REASON FOR EXAM: Female, 37 years old. right flank pain RADIATION DOSAGE (If Supplied By Facility): CTDIvol = ( 12.02 ) mGy, DLP = ( 550.41 ) mGycm TECHNIQUE: Transaxial images were obtained from the dome of the diaphragm to the symphysis pubis without oral contrast. IV 100mL Isovue-370 was administered. Sagittal and coronal images were reconstructed. Individualized dose optimization techniques were used for this CT. COMPARISON: 04/03/2022 FINDINGS: The visualized lung bases are unremarkable. The visualized portions of the heart are within normal limits. Normal liver. Normal gallbladder and extrahepatic biliary system. Normal spleen. Normal pancreas. Normal bilateral adrenal glands. No obstructive uropathy, or suspicious solid renal lesion, there is a punctate nonobstructing right renal stone. Normal visualized stomach. Nondistended fluid-filled small and large bowel loops consistent with enteritis. No ileus or obstruction. The appendix is visualized and appears normal. Appendix seen on coronal recon image 56 Normal abdominal aorta. Normal inferior vena cava. Normal retroperitoneum. Normal urinary bladder. Normal-appearing uterus. There is a complex right adnexal cystic structure measuring 5.14 x 3.54 x 4.23 cm which is likely responsible for the patient''s pain. There are physiologic left ovarian cysts. No demonstrated free fluid Normal abdominal wall. Normal osseous structures. CT/Abdomen/Pelvis W IV Cont ONLY IMPRESSION: No obstructive uropathy, or suspicious solid renal lesion, there is a punctate nonobstructing right renal stone. Large complex right ovarian cyst measuring 5.14 x 3.54 x 4.23 cm which likely represents the patient''s discomfort. This could be further evaluated with ultrasound Nondistended fluid-filled small and large bowel loops consistent with diffuse enteritis. Normal appendix visualized Electronically Signed: Cameron Montejo MD at 10:34 EDT ,
[2022-12-17] MEDS: Morphine 4 MG/ML Syringe 3 MG IV (10:08)
--- NOTE | 2022-12-17 10:38 | US_ITS ---
STUDY: ULTRASOUND TRANSVAGINAL CLINICAL: Female, 37 years old. flank pain TECHNIQUE: Transvaginal COMPARISON: CT from earlier today FINDINGS: Normal uterine size measuring 9.5 x 5.6 x 4.5 cm in maximal craniocaudal dimension. There are no myometrial masses. Normal endometrial thickness measuring 6 mm. There are no endometrial masses, and there is no fluid in the endometrial cavity. Normal uterine cervix. Normal right ovary, measuring 5.9 x 4.2 x 3.8 cm. There is a complex 3.2 x 3.5 x 3.8 cm cyst. Given the mural stranding and echoes within the cyst, follow-up ultrasound in 3-4 weeks is recommended to assure resolution. Normal left ovary, measuring 3.3 x 2.1 x 2.3 cm. There are multiple follicles without a dominant cyst. There is no free fluid in the pelvis. US/Transvaginal Non- IMPRESSION: There is a complex right ovarian cyst measuring 3.2 x 3.5 x 3.8 cm. Since it is not a simple cyst, short-term 3-4 week follow-up ultrasound is recommended to assess resolution or stability. Sonographically normal uterus and left ovary Electronically Signed: Cameron Montejo MD at 11:20 EDT ,
[2022-12-17 11:00] VITALS: BP 108/68
[2022-12-17 12:45] VITALS: BP 114/75
--- NOTE | 2022-12-17 12:49 | ED.RN ---
PATIENT STATES SHE HAS A RIDE AND SHE IS WAITING IN THE WAITING ROOM FOR SAID RIDE. PATIENT EDUCATED ABOUT THE NEED FOR RIDE. PATIENT CONVEYS UNDERSTAND AND STATED SHE IS WAITING IN THE WAITING ROOM.
== END 2022-12-17 12:46 | disposition home or self-care (01) ==
PROVIDERS: Emergency Provider Student in an Organized Health Care Education/Training Program; PCP Family Medicine; Visit Provider Student in an Organized Health Care Education/Training Program
DX: R10.9 Unspecified abdominal pain (principal); N83.201 Unspecified ovarian cyst, right side; F12.90 Cannabis use, unspecified, uncomplicated; F17.210 Nicotine dependence, cigarettes, uncomplicated; Z86.010 Personal history of colon polyps
CPT/HCPCS: 74177; 76830; 80053; 81001; 83690; 85025; 93976; 96361; 96374; 96375; 96376; 99283; J7030; Q9967; A4216; J2405

== ENCOUNTER 2023-02-20 11:09 | Emergency (ER) | payer MEDICARE, MEDICAID, SELFPAY ==
[2023-02-20 11:10] VITALS: BP 108/63; PULSE 87; RESP 16; TEMP 35.8; O2SAT 96
[2023-02-20 11:18] VITALS: BMI 31.8
[2023-02-20 11:19] VITALS: O2SAT 977
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
[2023-02-20] MEDS: Ibuprofen 600 MG Tablet PO (13:31)
== END 2023-02-20 13:33 | disposition home or self-care (01) ==
PROVIDERS: Emergency Provider Student in an Organized Health Care Education/Training Program; PCP Family Medicine; Visit Provider Student in an Organized Health Care Education/Training Program
DX: S06.0X0A Concussion without loss of consciousness, initial encounter (principal); S43.122A Dislocation of left acromioclavicular joint, 100%-200% displacement, initial encounter; V43.52XA Car driver injured in collision with other type car in traffic accident, initial encounter; Y93.89 Activity, other specified; Y92.410 Unspecified street and highway as the place of occurrence of the external cause; M79.7 Fibromyalgia; F17.210 Nicotine dependence, cigarettes, uncomplicated
CPT/HCPCS: 70450; 72125; 73030; 99283

== ENCOUNTER → 2023-09-23 | Outpatient (CLI) | payer MEDICARE, MEDICAID, SELFPAY ==
--- NOTE | 2023-09-23 13:11 | NEURO ---
NCS and/or EMG Patient Report Ordering Doctor: Divya Verduzco DATE OF SERVICE: 09/23/23 Clinical Summary: This is a 38 year old female presenting with complaints of numbness in the medial regions of both hands. This EMG/NCS was performed to evaluate for right/left ulnar mononeuropathies. Nerve Conduction Studies Summary: The left ulnar-D5 SNAP amplitude was reduced. The left ulnar-FDI CMAP amplitude was reduced below the elbow - likely to do understimulation. Otherwise, nerve conduction studies performed in the bilateral upper extremities were within normal ranges. Needle Examination Summary: Needle examination of select muscles of the bilateral upper extremities was normal. Impression: The left ulnar sensory amplitude was reduced, which by itself, can be indicative of non-localizable left ulnar mononeuropathy. There was no electrodiagnostic evidence of a right ulnar mononeuropathy or left/right carpal tunnel syndrome. Multi Select Codes Neurology Neurology Interp Codes: 30732-72 Musc test done w/n test comp (interp) (2) and 57205-71 Nrv cndj test 13/> studies (interp)
== END | disposition home or self-care (01) ==
LOC: PSN 12:05
PROVIDERS: PCP Family Medicine; Referring Provider Physician Assistant
DX: R20.0 Anesthesia of skin (principal)
CPT/HCPCS: 95886; 95913

== ENCOUNTER 2024-12-18 10:27 | Emergency (ER) | payer MEDICARE, MEDICAID, SELFPAY ==
[2024-12-18 10:28] VITALS: BP 128/94; PULSE 94; RESP 16; TEMP 36.4; O2SAT 98; BMI 34.0
[2024-12-18 10:29] VITALS: BP 110/80; PULSE 85; RESP 17; TEMP 37.2; O2SAT 98
--- NOTE | 2024-12-18 10:31 | EX.ED.SAOD ---
HPI History of Present Illness Chief Complaint: ETOH Intox Narrative Narrative: 39-year-old female presents via private vehicle with alcohol intoxication. She states that she woke up this morning and does not feel right. She states she has had nausea and vomiting. She went a few days without drinking alcohol, but over the last 2 days, she has been drinking essentially nonstop. Last drink was sometime last evening. She states she is never been through detox or rehab. She states that she drank a lot over the last 2 days. History and physical is mildly limited secondary to intoxication. She was placed on the cot but is repeatedly trying to sit up and get out of the cot. [facility] Medical History (Updated 12/18/24 @ 12:06 by Jaime Orellana MD) Marijuana abuse Alcohol abuse Smoker Colon polyps Fibromyalgia Home Medications ?Medication ?Instructions ?Recorded ?Last Taken ?Type albuterol sulfate 90 mcg/actuation 1 - 2 puff inhalation Q4H PRN PRN 08/20/21 Unknown History aerosol inhaler Wheezing ondansetron 4 mg disintegrating 4 mg PO Q8H PRN PRN Nausea #14 tabs 02/20/23 Unknown Rx tablet bupropion HCl 300 mg 24 hr tablet, 300 mg PO DAILY 12/18/24 Unknown History extended release pantoprazole 40 mg tablet,delayed 40 mg PO DAILY 12/18/24 Unknown History release Allergy/AdvReac Type Severity Reaction Status Date / Time tree and shrub pollen Allergy Unknown Verified 12/18/24 10:39 cyclobenzaprine (From AdvReac Other Verified 12/18/24 10:39 Flexeril) Surgical History History of herniorrhaphy H/O section Social History Smoking Status: Former smoker alcohol intake: current alcohol intake frequency: 3 or more drinks per day substance use type: marijuana ROS ROS ED ROS Narrative Review of systems mildly limited secondary to patient mental status. She states she feels hot and flushed. She endorses nausea and vomiting earlier this morning. States she does not feel well. Only describes general illness and not feeling right. Review of Systems ROS Unobtainable: due to mental status EXAM Physical Exam Narrative Exam Narrative: Afebrile. Vital signs noted. Cardiovascular examination regular rate and rhythm with intermittent tachycardia. Writhing around on bed, continually trying to sit up. Abdomen soft and nontender with normoactive bowel sounds. Answers questions appropriately regarding name and birthdate. Moves all extremities. Const Vital Signs: 12/18/24 10:28 12/18/24 10:29 12/18/24 11:28 Temperature 97.6 F L 98.9 F Temperature Source Oral Oral Pulse Rate 94 85 85 Respiratory Rate 16 17 17 Blood Pressure 128/94 H 110/80 123/89 H Blood Pressure Mean 105 90 100 Blood Pressure Source Monitor Blood Pressure Position Semi-Fowlers Blood Pressure Location Left Arm Pulse Ox 98 98 97 Oxygen Delivery Method Room Air Room Air Room Air 12/18/24 12:00 12/18/24 12:44 Temperature Temperature Source Pulse Rate 87 87 Respiratory Rate 16 18 Blood Pressure 121/89 H 120/94 H Blood Pressure Mean 99 102 Blood Pressure Source Blood Pressure Position Blood Pressure Location Pulse Ox 97 98 Oxygen Delivery Method Room Air Room Air MDM MDM MDM Narrative Medical decision making narrative: Differential diagnosis includes but not limited to alcoholic gastritis versus pancreatitis versus intoxication. I do not suspect seizure activity or withdrawal currently. On review of her laboratory work she has normal white count of 5.8 with hemoglobin normal at 13.1, hematocrit 39.1, platelet count normal at 256. CMP is grossly unremarkable on review. Alcohol level is 99, but still above the legal limit. Serum is negative. Upon repeat examination, she is less agitated. I discussed with her the possibility of admission for detox, and she wanted time to think about it. Afterwards, she told the RN that she wanted discharge. I did refer her to [facility]. At this point in time, as she does not want admission for detox and she is not in active withdrawal, I do feel she can be discharged to follow-up. Return instructions to the emergency department were reviewed. Disposition is discharged home in stable condition. History & Record Review Discussion w/independent historian: Patient Lab Data Attestation: I reviewed the patient's lab results. Labs: Laboratory Results - last 24 hr 12/18/24 12/18/24 12/18/24 10:35 10:35 11:13 WBC Cancelled 5.8 Corrected WBC Cancelled RBC Cancelled 4.24 Hgb Cancelled 13.1 Hct Cancelled 39.1 MCV Cancelled 92.2 MCH Cancelled 30.9 MCHC Cancelled 33.5 RDW Std Deviation Cancelled 48.5 H RDW Coeff of Damián Cancelled 14.4 Plt Count Cancelled 256 MPV Cancelled 9.2 Immature Gran % (Auto) Cancelled 0.300 Neut % (Auto) Cancelled 64.8 Lymph % (Auto) Cancelled 26.9 [place] % (Auto) Cancelled 4.7 Eos % (Auto) Cancelled 2.8 Baso % (Auto) Cancelled 0.5 Absolute Neuts (auto) Cancelled 3.7 Absolute Lymphs (auto) Cancelled 1.55 Total Counted Cancelled Neutrophils % (Manual) Cancelled Band Neutrophils % Cancelled Lymphocytes % (Manual) Cancelled Monocytes % (Manual) Cancelled Eosinophils % (Manual) Cancelled Basophils % (Manual) Cancelled Metamyelocytes % Cancelled Myelocytes % Cancelled Promyelocytes % Cancelled Blast Cells % Cancelled Plasma Cell % (Manual) Cancelled Other Cells % Cancelled Nucleated RBC % Cancelled 0 Nucleated RBCs/100 WBC Cancelled Differential Comment Cancelled Diff Path Review Cancelled Hypersegmented Neuts Cancelled Atypical Lymphocytes Cancelled Reactive Lymphocytes Cancelled Smudge Cells Cancelled Toxic Granulation Cancelled Toxic Vacuolation Cancelled Dohle Bodies Cancelled Anya Rods Cancelled Platelet Estimate Cancelled Plt Morphology Comment Cancelled RBC Morphology Cancelled Cancelled Polychromasia Cancelled Hypochromasia Cancelled Basophilic Stippling Cancelled Anisocytosis Cancelled Microcytosis Cancelled Macrocytosis Cancelled Spherocytes Cancelled Sickle Cells Cancelled Target Cells Cancelled Tear Drop Cells Cancelled Ovalocytes Cancelled Stomatocytes Cancelled Price-Warren Bodies Cancelled Whittemore Cells Cancelled Bite Cells Cancelled Crenated Cell Cancelled Acanthocytes (Spur) Cancelled Rouleaux Cancelled Schistocytes Cancelled Sodium 140 Potassium 4.2 Chloride 106 Carbon Dioxide 20.6 L Anion Gap 14 BUN 10 Creatinine 0.80 Estim Creat Clear Calc 86.86 Est GFR (MDRD) Non-Af 95 BUN/Creatinine Ratio 12.8 Glucose 115 H Calcium 8.8 Total Bilirubin 0.18 AST 22 ALT < 5 Alkaline Phosphatase 72 Total Protein 7.1 Albumin 4.3 Globulin 2.8 Albumin/Globulin Ratio 1.5 Lipase 36 Serum , Qual NEGATIVE Ethyl Alcohol 99.2 H Discharge Plan Triage Chief Complaint: ETOH Intox ED Provider: Jaime Orellana Dx/Rx/DC Orders Clinical Impression: Acute alcohol intoxication, General ill feeling Instructions: ED Alcohol Intoxication, ED Alcohol Abuse Prescriptions: No Action albuterol sulfate 90 mcg/actuation HFA aerosol inhaler 1 - 2 puff inhalation Q4H PRN PRN (Reason: Wheezing) ondansetron 4 mg tablet,disintegrating 4 mg PO Q8H PRN PRN (Reason: Nausea) Qty: 14 0RF pantoprazole 40 mg tablet,delayed release (DR/EC) 40 mg PO DAILY bupropion HCl 300 mg tablet extended release 24 hr 300 mg PO DAILY Primary Care Provider: Aubrey Hernandez Referrals: [facility] [Other] Aubrey Hernandez MD [Primary Care Provider] - 3-5 Days if not improving [facility] [Non-Staff] - As soon as possible Activity Restrictions/Additional Instructions: Follow-up with [facility] as an outpatient if you want help to stop drinking alcohol. Return with new or worsening symptoms, desire for detoxification. Print Language: Anguillan Disposition Disposition: Home, Self Care Discharge Date/Time: 12/18/24 12:44
[2024-12-18] MEDS: Lorazepam 2 MG/ML WCH Syringe 1 MG IV (10:45)
[2024-12-18 11:17] LABS: Alcohol, Blood (Medical)-Serum 99.2 mg/dL (<=10.0)
[2024-12-18 11:18] LABS: Absolute Lymphocyte Count 1.55 X10^3/uL (0.83-4.51); Absolute Neutrophil Count 3.7 X10^3/uL (2.0-7.7); Basophil# 0.03 X10^3/uL; Basophil% 0.5 % (0-1); Eosinophil# 0.16 X10^3/uL; Eosinophils% 2.8 % (0-5); Hematocrit 39.1 % (37-47); Hemoglobin 13.1 g/dL (12.0-15.0); Lymphocyte # 1.55 X10^3/ul (0.83-4.51); Lymphocyte % 26.9 % (19-41); Mean Corp Hgb Conc 33.5 g/dL (32-36); Mean Corpuscular Hgb 30.9 pg (27.0-32.0); Mean Corpuscular Volume 92.2 fL (81-99); Mean Platelet Vol. 9.2 fl (6.2-12.0); Monocyte# 0.27 X10^3/uL; Monocyte% 4.7 % (0-10); NRBC Flagged by Analyzer 0 % (0-5); Neutrophil # 3.73 X10^3/uL (2.7-7.7); Neutrophil % 64.8 % (47-70); Platelet Count 256 K/mm3 (150-450); RBC Distribution Width CV 14.4 % (11.6-14.6); RBC Distribution Width SD 48.5 fl (35.1-43.9); Red Blood Count 4.24 M/mm3 (4.2-5.4); White Blood Count 5.8 K/mm3 (4.4-11.0)
[2024-12-18 11:18] LABS: Lipase 36 U/L (13-75)
[2024-12-18 11:21] LABS: Internal QC Validated? YES +Cl - CLEAR BKGD; Pregnancy, Serum, hCG Quali. NEGATIVE Negative
[2024-12-18 11:28] VITALS: BP 123/89; PULSE 85; RESP 17; O2SAT 97
[2024-12-18 11:40] LABS: ALB/GLOB Ratio 1.5 RATIO (0.9-2.4); AST(SGOT) 22 U/L (<=31); Alanine Aminotransfer ALT/SGPT < 5 U/L (<=34); Albumin, Serum 4.3 g/dL (3.5-5.0); Alkaline Phosphatase 72 U/L (35-104); Anion Gap 14 (5-15); BUN 10 mg/dL (4-19); BUN/Creat Ratio 12.8 RATIO (10-20); Calcium,Total 8.8 mg/dL (7.6-11.0); Carbon Dioxide 20.6 mmol/L (21.0-32.0); Chloride 106 mmol/L (98-108); EST Glomerular Filtration Rate 95 (>60); Estimated Creatinine Clearance 86.86 ml/min (50-250); Globulin 2.8 g/dL (2.2-4.2); Glucose 115 mg/dL (70-99); Potassium 4.2 mmol/L (3.3-5.1); Protein, Total 7.1 g/dL (5.9-8.4); Sodium Level 140 mmol/L (133-145); Total Bilirubin 0.18 mg/dL (0.00-1.30)
[2024-12-18 12:00] VITALS: BP 121/89; PULSE 87; RESP 16; O2SAT 97
--- NOTE | 2024-12-18 12:30 | CM.ED ---
Social Work: Date of referral: 12/18/24 Reason for referral: Alcohol abuse Referred by: Social Work identification Patient provided consent to social work visit. Patient very tearful, kept calling herself a loser and stated she's been abusing alcohol for the past 7 years which is when her mother . Patient stated she doesn't want to drink as much as she does but stated she doesn't have anything else. Patient stated she doesn't have anyone helping her, denied having a support system and stated she did successfully quit smoking as well as stopped doing heroine. Patient stated recently she's been blacking out but doesn't think counseling will help. Patient stated she tried to cut back on her alcohol this week which is why she feels like she drank more these last two days. Patient has an 18 year old whom patient stated had to recently move out of the house since patient is receiving assistance and the 18 year old is staying with her father and grandmother. Patient stated she still has 2 school-age children living at home, ages 9 and 11. Patient reported her youngest was removed from her care and was placed with his father and patient just got him back a year ago. Patient stated all of her family members are also alcoholics. Patient denied the need for any additional help/resources at this time, although patient was agreeable to accepting written information from social service manager for [facility] that can help with both counseling as well as substance abuse issues. form worker will make a referral to [facility] for the 2 children living in the home. According to patient, it appears as though she stays intoxicated daily. [facility] hopefully to follow up to ensure the physical and emotional needs of children are being met. January Resendiz, IRRIGATION INSTALLATION SPECIALIST, ELECTRICAL SUPERVISOR
[2024-12-18 12:44] VITALS: BP 120/94; PULSE 87; RESP 18; O2SAT 98
--- NOTE | 2024-12-18 18:43 | CM.ED ---
Social work: detention worker made phone contact with Children [facility] and spoke with [facility]. detention worker made a referral. January Resendiz, DRIER AND EVAPORATOR OPERATOR, POLICE INSPECTOR
--- NOTE | 2025-01-02 15:12 | CM.ED ---
Social Work workers' compensation claims examiner received correspondence from [facility] services in regards to the referral that was made by social work administrator. Referral was accepted for investigation. January Resendiz, RN CALL CENTER, IS ANALYST
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
== END 2024-12-18 12:44 | disposition home or self-care (01) ==
LOC: ED 12:11
PROVIDERS: Emergency Provider Emergency Medicine; PCP Family Medicine; Visit Provider Emergency Medicine
DX: F10.129 Alcohol abuse with intoxication, unspecified (principal); Z87.891 Personal history of nicotine dependence
CPT/HCPCS: 80053; 82077; 83690; 84703; 85025; 96374; 99282; A4216